=== PATIENT | female | born 1970 | race African-American/Black ===

== ENCOUNTER 2024-01-06 20:14 | Emergency (ER) | payer MEDICARE, BC ==
[~2024-01-06] VITALS: Ht 152.4 cm; Wt 61.4 kg
[2024-01-06 20:22] VITALS: BP 105/64; PULSE 68; RESP 16; TEMP 98; O2SAT 98
== END 2024-01-06 21:12 | disposition left against medical advice (07) ==
LOC: ER 20:15
DX: R07.89 Other chest pain (principal); I25.10 Atherosclerotic heart disease of native coronary artery without angina pectoris; Z88.5 Allergy status to narcotic agent; Z88.8 Allergy status to other drugs, medicaments and biological substances; Z88.6 Allergy status to analgesic agent; Z91.041 Radiographic dye allergy status
CPT/HCPCS: 71046; 93005; 99283